=== PATIENT | female | born 1990 | race Caucasian/White ===

== ENCOUNTER 2017-07-16 05:22 | Day surgery (SDC) | payer MEDICAID ==
[2017-07-13 11:59] LABS: BASOPHILS % (AUTO) 0.5 % (0-1); EOSINOPHILS # (AUTO) 0.1 X10'3 (0-0.9); EOSINOPHILS % (AUTO) 1.3 % (0-6); LYMPHOCYTES # (AUTO) 3.8 X10'3 (1.1-4.8); LYMPHOCYTES % (AUTO) 55.5 % (21-51); MEAN CORPUSCULAR HEMOGLOBIN 33.6 PG (27.0-31.0); MEAN CORPUSCULAR HGB CONC 35.3 % (33.0-36.5); MEAN CORPUSCULAR VOLUME 95.2 FL (78-98); MEAN PLATELET VOLUME 8.1 FL (7.4-10.4); MONOCYTES # (AUTO) 0.4 X10'3 (0-0.9); MONOCYTES % (AUTO) 5.6 % (2-12); NEUTROPHILS # (AUTO) 2.5 X10'3 (1.8-7.7); NEUTROPHILS % (AUTO) 37.1 % (42-75); PRE OP HEMATOCRIT 38.8 % (35.0-45.0); PRE OP HEMOGLOBIN 13.7 g/dL (12.0-16.0); PRE OP PLATELET COUNT 289 X10'3 (140-440); RED BLOOD COUNT 4.07 X10'6 (4.20-5.60); RED CELL DISTRIBUTION WIDTH 12.5 % (11.5-14.5)
[2017-07-13 12:10] LABS: ALBUMIN 3.8 G/DL (3.4-5.0); ANION GAP 11 (8-16); BLOOD UREA NITROGEN 10 MG/DL (7-18); BUN/CREATININE RATIO 13.2 (6.6-38.0); CALCIUM 8.8 MG/DL (8.5-10.1); CHLORIDE 108 MMOL/L (99-107); CREATININE 0.76 MG/DL (0.40-0.90); GLUCOSE 93 MG/DL (70-104); POTASSIUM 4.1 MMOL/L (3.5-5.1); SODIUM 141 MMOL/L (135-145); TOTAL CARBON DIOXIDE 22.4 MMOL/L (24-32); eGFR 90 ML/MIN
[2017-07-13 12:17] LABS: HCG SERUM QL NEGATIVE
[~2017-07-16] VITALS: Ht 162.6 cm; Wt 81.7 kg
[2017-07-16] VITALS (9 sets, daily range): BP systolic 112–126; BP diastolic 62–89
[~2017-07-16 05:22] MED LIST: NO HOME MEDS; ringers solution, lacted 1,000 ML IV SCH
[2017-07-16] MEDS ORDERED: cefazolin/dext.iso 2gm/50ml 50 ML IV ONE (05:30)
[2017-07-16] MEDS ORDERED: famotidine 20mg tablet PO ONE (05:30)
[2017-07-16] MEDS ORDERED: LIDOcaine 1% (10mg/ml) 2ml vial ONE (05:39)
[2017-07-16] MEDS ORDERED: BUPIVAcaine/PF 2.5 mg/ml (0.25%) 30ml vial ONE (06:35)
[2017-07-16] MEDS ORDERED: scopolamine 1.5mg patch.TD72 TD ONE (07:18)
[2017-07-16] MEDS ORDERED: sevoflurane 250ml liquid IH ONE (07:27)
[2017-07-16] MEDS ORDERED: midazolam 2 mg/2 ml injection ONE (07:28)
[2017-07-16] MEDS ORDERED: fentaNYL/PF 50MCG/1 ML 2ML syringe ONE (07:28)
[2017-07-16] MEDS ORDERED: dexamethasone sod phosphate 4mg/ml inj. ONE (07:51)
[2017-07-16] MEDS ORDERED: rocuronium 10mg/ml inj IV ONE (07:51)
[2017-07-16] MEDS ORDERED: glycopyrrolate 0.2mg/ml inj ONE (07:52)
[2017-07-16] MEDS ORDERED: ondansetron/PF 4mg/2ml inj ONE (07:52)
[2017-07-16] MEDS ORDERED: propofol inj 20 ML IV ONE (07:52)
[2017-07-16] MEDS ORDERED: neostigmine methylsulfate 1 MG/ML 10ml vial ONE (07:52)
[2017-07-16] MEDS ORDERED: ringers solution, lacted 1,000 ML IV SCH (08:03)
[2017-07-16] MEDS ORDERED: meperidine/PF 50mg/ml syringe IV PRN ×3 (08:05)
[2017-07-16] MEDS ORDERED: morphine 4 MG/ML inj SYRINge IV PRN ×2 (08:05)
[2017-07-16] MEDS ORDERED: ondansetron/PF 4mg/2ml inj IV PRN (08:05)
[2017-07-16] MEDS ORDERED: proCHLORperazine 10 MG/2 ml inj IV PRN (08:05)
== END 2017-07-16 09:10 | disposition home or self-care (01) ==
LOC: PAS 05:22
PROVIDERS: ATTEND Obstetrics & Gynecology
DX: Z30.2 Encounter for sterilization (principal); N85.2 Hypertrophy of uterus; F17.210 Nicotine dependence, cigarettes, uncomplicated; Z90.89 Acquired absence of other organs
CPT/HCPCS: 36415; 58670; 80048; 84703; 85025; A6258; A6402; J0690; J1100; J2250; J2270; J2405; J2704; J2710; J3010; J3490; J7120; A7000